=== PATIENT | female | born 1995 | race African-American/Black ===

== ENCOUNTER 2018-02-20 18:35 | Emergency (ER) | payer OTHER ==
[2018-02-20] MEDS: ACETAMINOPHEN TAB 650MG DOSE (2X325MG) PO (19:12)
[2018-02-20] MEDS ORDERED: NAPROXEN 250 MG TAB PO (22:00)
[2018-02-20] MEDS ORDERED: PSEUDOEPHEDRINE 30 MG TAB PO (22:00)
[2018-02-20] MEDS: guaiFENesin ER 600 MG TAB PO (22:04)
[2018-02-20 22:19] LABS: INFLUENZA A AMPLIFICATION NEGATIVE (NEGATIVE); INFLUENZA B AMPLIFICATION NEGATIVE (NEGATIVE)
== END 2018-02-20 22:48 | disposition home or self-care (01) ==
LOC: M ED 18:35
DX: J06.9 Acute upper respiratory infection, unspecified (principal); F31.9 Bipolar disorder, unspecified; F43.10 Post-traumatic stress disorder, unspecified; F90.9 Attention-deficit hyperactivity disorder, unspecified type; G47.00 Insomnia, unspecified
CPT/HCPCS: 87502

== ENCOUNTER 2018-06-29 11:24 | Inpatient (IN) | payer OTHER ==
[~2018-06-29] VITALS: Ht 172.7 cm; Wt 90.9 kg
[2018-06-29] MEDS: PRENATAL VITAMINS CHEWABLE TABLET PO SCH (09:00)
[2018-06-29] MEDS ORDERED: ZOLO50TA PO (11:40)
[2018-06-29] MEDS ORDERED: PRENTAB45 PO (11:40)
[2018-06-29 12:21] LABS: AMPHETAMINES LEVEL URINE NEGATIVE (NEGATIVE); BARBITURATES URINE NEGATIVE (NEGATIVE); BENZODIAZEPINES URINE NEGATIVE (NEGATIVE); CANNABINOIDS URINE NEGATIVE (NEGATIVE); COCAINE METABOLITE URINE NEGATIVE (NEGATIVE); METHADONE URINE NEGATIVE (NEGATIVE); OPIATES URINE NEGATIVE (NEGATIVE); PHENCYCLIDINE URINE NEGATIVE (NEGATIVE)
[2018-06-29 12:39] LABS: HEMATOCRIT 34.8 % (36.0-47.0); HEMOGLOBIN 11.4 g/dl (12.0-15.5); MEAN CORPUSCULAR HEMOGLOBIN 30.8 pg (27.0-33.0); MEAN CORPUSCULAR HGB CONC 32.8 g/dl (32.0-36.5); MEAN CORPUSCULAR VOLUME 94.1 fl (80.0-96.0); PLATELET COUNT, AUTOMATED 247 10^3/uL (150-450)
[2018-06-29 13:10] LABS: HCG, SERUM QUALITATIVE POSITIVE (NEGATIVE)
[2018-06-29 13:24] LABS: ACETAMINOPHEN LEVEL < 2.0 UG/ML (10.0-30.0); ALBUMIN 2.8 GM/DL (3.2-5.2); ALT/SGPT 18 U/L (12-78); BILIRUBIN,DIRECT < 0.1 MG/DL (0.0-0.2); BILIRUBIN,TOTAL 0.2 MG/DL (0.2-1.0); BLOOD UREA NITROGEN 6 MG/DL (7-18); CALCIUM LEVEL 8.4 MG/DL (8.5-10.1); CARBON DIOXIDE LEVEL 24 MEQ/L (21-32); CHLORIDE LEVEL 105 MEQ/L (98-107); CREATININE FOR GFR 0.53 MG/DL (0.55-1.30); ETHYL ALCOHOL (ETHANOL) < 0.003 % (0.000-0.010); GLOMERULAR FILTRATION RATE > 60.0 (>60); GLUCOSE, FASTING 77 MG/DL (70-100); POTASSIUM SERUM 3.9 MEQ/L (3.5-5.1); SALICYLATE LEVEL < 1.7 MG/DL (5.0-30.0); SODIUM LEVEL 137 MEQ/L (136-145); THYROID STIMULATING HORMONE 0.433 uIU/ML (0.358-3.740); TOTAL PROTEIN 6.5 GM/DL (6.4-8.2)
[2018-06-29 15:57] VITALS: BP 129/59
[2018-06-30 06:50] VITALS: BP 114/58
[2018-06-30] MEDS: SERTRALINE HCL 50 MG TAB PO SCH (08:33)
[2018-06-30] MEDS: PRENATAL VITAMINS CHEWABLE TABLET PO SCH (08:33)
[2018-06-30 18:00] VITALS: BP 117/58
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
[2018-07-01 06:39] VITALS: BP 122/59
[2018-07-01] MEDS: SERTRALINE HCL 50 MG TAB PO SCH (08:27)
[2018-07-01] MEDS: PRENATAL VITAMINS CHEWABLE TABLET PO SCH (08:27)
--- NOTE | 2018-07-01 09:11 | MHIPNPDOC ---
[facility] Progress Note Progress Note DATE OF SERVICE: 07/01/18 HISTORY:Per Dr. Church "As per ED Report "[Pt presented to [facility] [place] stating she was suicidal with a plan to overdose on her medica tion.(Zoloft) Pt states she feels hatred towards herself and she is not living up to the world's standards. Pt states she felt this way before she became and afterwards. She is 6 months at this time. Patient is a 22 -year-old , female, who was sent to the ED because she presented with SI to [facility]. At this time the patient denies feeling suicidal or feeling depressed. She admits that she felt depressed, about one year ago, when she felt hopeless and helpless but she says that since she realized that she was , she has been feeling better because she is happy with her and she is happy with the father of the baby who lives with her and is very supportive according to her. Interestingly, she said that when she met him she didn't like him at all because he was very mean but when he told one of her friends he liked her and they started talking, she realized he was not mean. VITAL SIGNS: See below. NEW TEST RESULTS: See below. CURRENT MEDICATIONS: See below. MENTAL STATUS EXAMINATION: General Appearance: well groomed, appears stated age, hospital scrubs/clothing Build: average Demeanor: average Eye Contact: fair Activity: less anxious Behavior: cooperative, less restless Speech: clear, spontaneous, normal volume, reg/rate,rhythm,volume Mood: less depressed, less anxious Affect: more full, congruent, less anxious Thought Process: logical/linear Thought Content (Delusions): none reported Thought Content (Other): none reported Thought Content (Aggressive): none reported Perception (Hallucinations): none reported Perception (Other): none reported Cognition (Impairment of): none reported Cognition(Intelligence Est.): average Oriented: Awake, Alert, Oriented times three Insight: fair Judgment: Fair Psychosis: Denies DIAGNOSES: Other Specified Depressive D/O R/O Adjustment D/O, w/Depressed-Anxious Mood Hx of Social Anxiety D/O ASSESSMENT: Pt seen and states that her mood is "alright". States she's being social on the milieu which is beneficial. States she slept well last night. Feels she is tolerating her medications and they're beneficial. She is attending groups and finding them helpful. She denies insomnia, SI/HI, hallucinations, delusions. Pt feels safe here. MANAGEMENT PLAN: per Dr. Church. TIME SPENT: 30 minutes. Vital Signs Vital Signs Date Time Temp Pulse Resp B/P (MAP) Pulse Ox O2 Delivery O2 Flow Rate FiO2 07/01/18 06:39 98.6 75 16 122/59 (80) 06/29/18 15:57 98 06/29/18 11:46 Room Air Current Medications Current Medications Home Med (Med Rec Complete!) ASDIRECTED XX ; Start 06/29/18 at 15:45; Stop 06/29/18 at 15:45; Status DC Prenat Multivit/ Repeater Chief/Iron/Folic Ac ( Vitamins) 1 tab DAILY PO Last administered on 07/01/18at 08:27; Start 06/29/18 at 09:00 Sertraline HCl (Zoloft) 50 mg DAILY PO Last administered on 07/01/18at 08:27; Start 06/30/18 at 09:00 Allergies Coded Allergies: No Known Allergies (Unverified , 02/20/18) DE EVANS DO Jul 01, 2018 09:11
[2018-07-01 18:33] VITALS: BP 123/65
[2018-07-02 06:10] VITALS: BP 125/59
[2018-07-02] MEDS: PRENATAL VITAMINS CHEWABLE TABLET PO SCH (08:10)
[2018-07-02] MEDS: SERTRALINE HCL 50 MG TAB PO SCH (08:10)
--- NOTE | 2018-07-02 09:37 | MHIPNPDOC ---
[facility] Progress Note Progress Note DATE OF SERVICE: 07/02/18 HISTORY: Per Dr. Church "As per ED Report "[Pt presented to [facility] stating she was suicidal with a plan to overdose on her medic ation.(Zoloft) Pt states she feels hatred towards herself and she is not living up to the world's standards. Pt states she felt this way before she became and afterwards. She is 6 months at this time. Patient is a 22 -year-old , female, who was sent to the ED because she presented with SI to [facility]. At this time the patient denies feeling suicidal or feeling depressed. She admits that she felt depressed, about one year ago, when she felt hopeless and helpless but she says that since she realized that she was , she has been feeling better because she is happy with her and she is happy with the father of the baby who lives with her and is very supportive according to her. Interestingly, she said that when she met him she didn't like him at all because he was very mean but when he told one of her friends he liked her and they started talking, she realized he was not mean. VITAL SIGNS: See below. NEW TEST RESULTS: See below. CURRENT MEDICATIONS: See below. MENTAL STATUS EXAMINATION: General Appearance: well groomed, appears stated age, hospital scrubs/clothing Build: average Demeanor: average Eye Contact: fair Activity: calm, cooperative Behavior: cooperative, less restless Speech: clear, spontaneous, normal volume, reg/rate,rhythm,volume Mood: less depressed, less anxious Affect: more full, congruent, less anxious Thought Process: logical/linear Thought Content (Delusions): none reported Thought Content (Other): none reported Thought Content (Aggressive): none reported Perception (Hallucinations): none reported Perception (Other): none reported Cognition (Impairment of): none reported Cognition(Intelligence Est.): average Oriented: Awake, Alert, Oriented times three Insight: fair Judgment: Fair Psychosis: Denies DIAGNOSES: Other Specified Depressive D/O R/O Adjustment D/O, w/Depressed-Anxious Mood Hx of Social Anxiety D/O ASSESSMENT: Pt seen and states that her mood is "ok". States she's being social on the milieu which is beneficial. States she slept well last night. Feels she is tolerating her medications and they're beneficial. She is attending groups and finding them helpful. She denies insomnia, SI/HI, hallucinations, delusions. Pt feels safe here. MANAGEMENT PLAN: per Dr. Church. TIME SPENT: 30 minutes. Vital Signs Vital Signs Date Time Temp Pulse Resp B/P (MAP) Pulse Ox O2 Delivery O2 Flow Rate FiO2 07/02/18 06:10 99.8 94 18 125/59 (81) 06/29/18 15:57 98 06/29/18 11:46 Room Air Current Medications Current Medications Home Med (Med Rec Complete!) ASDIRECTED XX ; Start 06/29/18 at 15:45; Stop 06/29/18 at 15:45; Status DC Prenat Multivit/ Generator Operator/Iron/Folic Ac ( Vitamins) 1 tab DAILY PO Last administered on 07/02/18at 08:10; Start 06/29/18 at 09:00 Sertraline HCl (Zoloft) 50 mg DAILY PO Last administered on 07/02/18at 08:10; Start 06/30/18 at 09:00 Allergies Coded Allergies: No Known Allergies (Unverified , 02/20/18) DE EVANS DO Jul 02, 2018 09:37
[2018-07-02] MEDS ORDERED: ACETAMINOPHEN TAB 650MG DOSE (2X325MG) PO PRN (10:15)
[2018-07-02 18:00] VITALS: BP 127/60
[2018-07-03 06:50] VITALS: BP 124/61
[2018-07-03] MEDS: PRENATAL VITAMINS CHEWABLE TABLET PO SCH (08:23)
[2018-07-03] MEDS: SERTRALINE HCL 50 MG TAB PO SCH (08:23)
[2018-07-03 18:05] VITALS: BP 117/55
[2018-07-04 07:00] VITALS: BP 102/55
--- NOTE | 2018-07-04 07:22 | HPE ---
DATE OF ADMISSION: 06/29/2018 HISTORY OF PRESENT ILLNESS: Please refer to psychiatric history and evaluation for further details on this admission. This examination and history is intended for medical issues, which may need treatment, followup, or consultation on this 22-year-old female. ALLERGIES: No known allergies. PRIMARY CARE PROVIDER: Currently, she is going to see her obstetric (OB) doctor, whose name is Dr. Moultonson. He is from [facility]. 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 Ethyl alcohol (EtOH): None since . Smokes none. Recreational drug use: None. PAST MEDICAL HISTORY: 6 months . PAST SURGICAL HISTORY: Negative. HOME MEDICATIONS: - vitamin one by mouth daily - sertraline 50 mg by mouth daily FAMILY HISTORY: Noncontributory. LABORATORY STUDIES: White count is 8.0, hemoglobin 11.4, hematocrit 34.8, platelets are 247. Electrolytes are normal. BUN 6, creatinine 0.53, calcium 8.4. REVIEW OF SYSTEMS: 10-system review was done and was unremarkable. PHYSICAL EXAMINATION: 22-year-old cooperative female in no acute distress. Height is 68 inches, weight 87.3 kg, body mass index (BMI) 29.3. Blood pressure 114/58, pulse 80, respirations 16, temperature 97.8, oxygen saturation 98% on room air. Patient is alert and oriented times three. Pupils equal and reactive to light. Extraocular movements (EOMs) intact. Cornea and sclerae clear. Conjunctivae normal. No facial asymmetry. Pharynx, tongue, and gums pink and moist. Tongue is midline. Neck is supple without lymphadenopathy. No thyromegaly. No goiter. Carotids 2+ without bruit. Chest: Clear to auscultation without wheeze or retraction. Heart is regular. Abdomen: Patient is . Bowel sounds are positive. Genitourinary ()/Rectal: Not done. Extremities: No cyanosis, clubbing, or edema. Peripheral pulse equal and palpable bilaterally. IMPRESSION/PLAN: Psychiatric. Plan per psychiatry. . Continue vitamins. heartbeat once per shift. No acute medical issues.
[2018-07-04] MEDS: SERTRALINE HCL 50 MG TAB PO SCH (08:24)
[2018-07-04] MEDS: PRENATAL VITAMINS CHEWABLE TABLET PO SCH (08:24)
[2018-07-04 18:10] VITALS: BP 126/59
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
--- NOTE | 2018-07-04 22:54 | MHIPNPDOC ---
[facility] Progress Note Progress Note DATE OF SERVICE: 07/04/18 HISTORY: Per Dr. Yanes "As per ED Report "[Pt presented to [facility] stating she was suicidal with a plan to overdose on her medic ation.(Zoloft) Pt states she feels hatred towards herself and she is not living up to the world's standards. Pt states she felt this way before she became and afterwards. She is 6 months at this time. Patient is a 22 -year-old , female, who was sent to the ED because she presented with SI to [facility]. At this time the patient denies feeling suicidal or feeling depressed. She admits that she felt depressed, about one year ago, when she felt hopeless and helpless but she says that since she realized that she was , she has been feeling better because she is happy with her and she is happy with the father of the baby who lives with her and is very supportive according to her. Interestingly, she said that when she met him she didn't like him at all because he was very mean but when he told one of her friends he liked her and they started talking, she realized he was not mean. VITAL SIGNS: See below. NEW TEST RESULTS: See below. CURRENT MEDICATIONS: See below. MENTAL STATUS EXAMINATION: General Appearance: well groomed, appears stated age, hospital scrubs/clothing Build: average Demeanor: average Eye Contact: fair Activity: calm, cooperative Behavior: cooperative, natacha, pleasant, cooperative Speech: clear, spontaneous, normal volume, reg/rate,rhythm,volume Mood: euthymic Affect: full, congruent appropriate, reactive, normal Thought Process: logical/linear, intact Thought Content (Delusions): none reported Thought Content (Other): denies SI/denies HI. she is goal orientated, has positive thoughts about her future Thought Content (Aggressive): none reported Perception (Hallucinations): none reported Perception (Other): none reported Cognition (Impairment of): none reported Cognition(Intelligence Est.): average Oriented: Awake, Alert, Oriented times three Insight: good Judgment: good Psychosis: Denies DIAGNOSES: Other Specified Depressive D/O R/O Adjustment D/O, w/Depressed-Anxious Mood Hx of Social Anxiety D/O ASSESSMENT: Patient says that she is doing well, she feels ready to be discharged tomorrow. Goal orientated, happy about her , she is thinking about from the [employer] (later on, after she delivers her baby), she says that she thinks she will speak to her higher ups once she goes back to [place] to start the process. patient is not suicidal, not homicidal and not psychotic. MANAGEMENT PLAN: continue with Zoloft 50 mgs po daily TIME SPENT: 30 minutes. Vital Signs Vital Signs Date Time Temp Pulse Resp B/P (MAP) Pulse Ox O2 Delivery O2 Flow Rate FiO2 07/04/18 18:10 98.9 88 16 126/59 (81) 06/29/18 15:57 98 06/29/18 11:46 Room Air Current Medications Current Medications Acetaminophen (Tylenol Tab) 650 mg Q6HP PRN PO PAIN / FEVER; Start 07/02/18 at 10:15 Home Med (Med Rec Complete!) ASDIRECTED XX ; Start 06/29/18 at 15:45; Stop 06/29/18 at 15:45; Status DC Prenat Multivit/ Management Lead/Iron/Folic Ac ( Vitamins) 1 tab DAILY PO Last administered on 07/04/18at 08:24; Start 06/29/18 at 09:00 Sertraline HCl (Zoloft) 50 mg DAILY PO Last administered on 07/04/18at 08:24; Start 06/30/18 at 09:00 Allergies Coded Allergies: No Known Allergies (Unverified , 02/20/18) FELECIA YANES MD Jul 04, 2018 22:54
[2018-07-05 06:00] VITALS: BP 116/55
[2018-07-05] MEDS: SERTRALINE HCL 50 MG TAB PO SCH (08:18)
[2018-07-05] MEDS: PRENATAL VITAMINS CHEWABLE TABLET PO SCH (08:18)
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
== END 2018-07-05 12:30 | disposition home or self-care (01) | DRG 832 ==
LOC: M ED 11:24 → M ED INP 14:39 → M PSY 15:57
PROVIDERS: ADMIT Psychiatry & Neurology Psychiatry; ATTEND Psychiatry & Neurology Psychiatry
DX: O99.343 Other mental disorders complicating pregnancy, third trimester (principal); R45.851 Suicidal ideations; F41.1 Generalized anxiety disorder; F43.23 Adjustment disorder with mixed anxiety and depressed mood